=== PATIENT | male | born 2000 | race Caucasian/White ===

== ENCOUNTER 2022-01-13 23:11 | Emergency (ER) | payer SELFPAY ==
[2022-01-14] MEDS ORDERED: CIPHCO RIGHT EAR (09:24)
[2022-01-14] MEDS ORDERED: IBUP-2028 MT (09:24)
== END 2022-01-14 00:19 | disposition left against medical advice (07) ==
LOC: ER 23:51
DX: Z53.21 Procedure and treatment not carried out due to patient leaving prior to being seen by health care provider (principal)

== ENCOUNTER 2022-01-14 07:53 | Emergency (ER) | payer SELFPAY ==
[~2022-01-14] VITALS: Ht 172.7 cm; Wt 77.0 kg
[2022-01-14 08:21] VITALS: BP 115/72
[2022-01-14] MEDS ORDERED: CIPHCO RIGHT EAR (09:24)
[2022-01-14] MEDS ORDERED: IBUP-2028 MT (09:24)
== END 2022-01-14 10:06 | disposition home or self-care (01) ==
LOC: ER 07:53
DX: H60.91 Unspecified otitis externa, right ear (principal)
CPT/HCPCS: 99283